=== PATIENT | male | born 1965 | race Caucasian/White ===

== ENCOUNTER 2021-05-12 09:19 | Inpatient (IN) | payer BC ==
[2021-05-16] MEDS ORDERED: Levofloxacin 500 mg/D5W 100 ml Premix Bag ONE (06:01)
[2021-05-16] MEDS ORDERED: EPINEPHrine 1 MG/ML AMP ONE (06:14)
[2021-05-16] MEDS ORDERED: Thrombin 5000 UNITS/5 ML VIAL ONE (06:14)
[2021-05-16] MEDS ORDERED: Bupivacaine PF 0.5% 30 ML VIAL ONE (06:14)
[2021-05-16] MEDS ORDERED: Neomycin-Polymyxin 1 ML AMP ONE (06:14)
[2021-05-16] MEDS ORDERED: Promethazine HCl 25 MG/ML VIAL IM PRN ×2 (06:33→15:20)
[2021-05-16] MEDS ORDERED: Ondansetron PF 4 MG/2 ML Vial IVP PRN (06:33)
[2021-05-16] MEDS ORDERED: Bisacodyl 10 MG SUPP PR PRN (06:33)
[2021-05-16] MEDS ORDERED: Milk Of Magnesia 30 ML UDCUP PO PRN (06:33)
[2021-05-16] MEDS ORDERED: Mag-Al 1200 mg/1200 mg/30 ML UDCUP PO PRN (06:33)
[2021-05-16] MEDS ORDERED: Acetaminophen 325 MG TAB PO PRN (06:33)
[2021-05-16] MEDS ORDERED: diphenhydrAMINE 25 MG CAP PO PRN (06:33)
[2021-05-16] MEDS ORDERED: Fentanyl 250 MCG/5 ML VIAL ONE ×2 (06:35→15:25)
[2021-05-16] MEDS ORDERED: Morphine 4 MG/ML VIAL SLOW IVP PRN (06:41)
[2021-05-16] MEDS ORDERED: Midazolam HCl 2 mg/2 ml Vial ONE (06:52)
[2021-05-16] MEDS ORDERED: Rocuronium Bromide 10 MG/ML (10ML VIAL) ONE (07:03)
[2021-05-16] MEDS ORDERED: Vecuronium 10 MG VIAL ONE (07:03)
[2021-05-16] MEDS ORDERED: PROPOFOL 200 MG/20 ML VIAL ONE (07:03)
[2021-05-16] MEDS ORDERED: Lidocaine 1% PF 5 ML VIAL ONE (07:03)
[2021-05-16] MEDS ORDERED: Glycopyrrolate 0.2 MG/ML 5 ML SYRINGE ONE (07:03)
[2021-05-16] MEDS ORDERED: PHENYLEPHRINE-NS 100 MCG/ML 10 ML SYRINGE ONE ×2 (07:03→09:38)
[2021-05-16] MEDS ORDERED: ePHEDrine 50 MG/ML VIAL ONE (07:03)
[2021-05-16] MEDS ORDERED: Labetalol HCl 100 MG/20 ML VIAL ONE (07:03)
[2021-05-16] MEDS ORDERED: Clindamycin/D5W 900 mg/50 ml Premix Bag ONE ×2 (07:06→12:14)
[2021-05-16] MEDS ORDERED: Albumin 5% 500 ML ONE (09:40)
[2021-05-16] MEDS ORDERED: HYDROmorphone 0.5 MG/0.5 ML SYRINGE ONE (14:00)
[2021-05-16] MEDS ORDERED: HYDROmorphone 2 MG/ML VIAL SLOW IVP PRN (15:20)
[2021-05-16] MEDS ORDERED: Promethazine HCl 25 MG/ML VIAL IVPB PRN (15:20)
[2021-05-16] MEDS ORDERED: Ondansetron HCl/PF 4 MG/2 ML Vial IVP PRN (15:20)
[2021-05-16] MEDS ORDERED: Tamsulosin HCl 0.4 MG CAP ONE (16:27)
[2021-05-16] MEDS: Clindamycin/D5W 900 MG in Premix Bag 1 BAG IVPB SCH ×2 (17:09→21:56)
[2021-05-16] MEDS: Sodium Chloride 0.9% 1,000 ML IV SCH (17:09)
[2021-05-16 18:42] VITALS: BMI 31.4
[2021-05-16] MEDS ORDERED: Dextrose 5% in Water 1,000 ML IV PRN (18:49)
[2021-05-16] MEDS ORDERED: Dextrose 50% Abboject 50 ML SYRINGE SLOW IVP PRN (18:49)
[2021-05-16] MEDS ORDERED: Nicotine 7 MG PATCH TD PRN (18:52)
[2021-05-16] MEDS: rOPINIRole HCl 2 MG TAB PO SCH (20:42)
[2021-05-16] MEDS: Pregabalin 75 MG CAP PO SCH (20:43)
[2021-05-16] MEDS ORDERED: Non-Formulary Item 1 EACH (Pregabalin [Pregabalin] 300 MG Capsule) PO SCH (21:00)
[2021-05-16] MEDS: HYDROcodone/Acetaminophen 7.5/325 mg Tablet PO PRN (21:12)
[2021-05-16] MEDS: Cyclobenzaprine 10 MG TAB PO PRN (21:21)
[2021-05-17] MEDS: Sodium Chloride 0.9% 1,000 ML IV SCH ×3 (00:39→23:57)
[2021-05-17] MEDS: HYDROcodone/Acetaminophen 7.5/325 mg Tablet PO PRN ×3 (01:43→11:57)
[2021-05-17] MEDS: Tamsulosin HCl 0.4 MG CAP PO SCH (05:47)
[2021-05-17] MEDS ORDERED: Cyanocobalamin (Vitamin B-12) 1,000 MCG TAB PO SCH (09:00)
[2021-05-17] MEDS: Pregabalin 75 MG CAP PO SCH ×2 (09:18→21:21)
[2021-05-17] MEDS: Multivit, Therapeutic 1 TAB PO SCH (09:18)
[2021-05-17] MEDS: Cyclobenzaprine 10 MG TAB PO PRN (09:18)
[2021-05-17] MEDS: DULoxetine 60 MG CAP PO SCH (09:18)
[2021-05-17] MEDS: Acetaminophen/Codeine 30-300mg Tablet PO PRN (09:19)
[2021-05-17] MEDS: Cyanocobalamin (Vitamin B-12) 1,000 MCG TAB PO SCH (11:50)
[2021-05-17] MEDS: HYDROcodone/Acetaminophen 10/325 mg Tablet PO PRN ×2 (17:21→21:21)
[2021-05-17] MEDS: rOPINIRole HCl 2 MG TAB PO SCH (21:21)
[2021-05-18] MEDS: HYDROcodone/Acetaminophen 10/325 mg Tablet PO PRN ×2 (01:57→06:03)
[2021-05-18] MEDS: Tamsulosin HCl 0.4 MG CAP PO SCH (06:03)
[2021-05-18 06:19] VITALS: BP 129/72; TEMP 99.1
[2021-05-18] MEDS: Acetaminophen/Codeine 30-300mg Tablet PO PRN (08:41)
[2021-05-18] MEDS: Multivit, Therapeutic 1 TAB PO SCH (08:41)
[2021-05-18] MEDS: DULoxetine 60 MG CAP PO SCH (08:41)
[2021-05-18] MEDS: Pregabalin 75 MG CAP PO SCH (08:42)
[2021-05-18] MEDS: Cyanocobalamin (Vitamin B-12) 1,000 MCG TAB PO SCH (08:42)
== END 2021-05-18 10:55 | disposition home or self-care (01) | DRG 455 ==
LOC: SURG A 05-16 05:39
PROVIDERS: ADMIT Neurological Surgery; ATTEND Neurological Surgery
PROC: 0SG30AJ Fusion of Lumbosacral Joint with Interbody Fusion Device, Posterior Approach, Anterior Column, Open Approach (ICD-10-PCS; principal; 2021-05-16)
PROC: 0SG3071 Fusion of Lumbosacral Joint with Autologous Tissue Substitute, Posterior Approach, Posterior Column, Open Approach (ICD-10-PCS; 2021-05-16)
PROC: 01NB0ZZ Release Lumbar Nerve, Open Approach (ICD-10-PCS; 2021-05-16)
PROC: 01NR0ZZ Release Sacral Nerve, Open Approach (ICD-10-PCS; 2021-05-16)
DX: M43.17 Spondylolisthesis, lumbosacral region (principal); M19.90 Unspecified osteoarthritis, unspecified site; G89.29 Other chronic pain; M54.17 Radiculopathy, lumbosacral region; F32.A Depression, unspecified; G43.909 Migraine, unspecified, not intractable, without status migrainosus; E11.42 Type 2 diabetes mellitus with diabetic polyneuropathy; G47.33 Obstructive sleep apnea (adult) (pediatric); F17.200 Nicotine dependence, unspecified, uncomplicated; R33.9 Retention of urine, unspecified; Z88.8 Allergy status to other drugs, medicaments and biological substances; Z88.1 Allergy status to other antibiotic agents; Z79.899 Other long term (current) drug therapy; Z83.3 Family history of diabetes mellitus
CPT/HCPCS: 76000; C1713; C1768; C1776; J0171; J1170; J1956; J2250; J2270; J2704; J3010; J3370; J3490; P9045; S0020

== ENCOUNTER 2021-05-12 10:48 | Outpatient (CLI) | payer BC ==
[2021-05-12 13:06] LABS: Hemoglobin 14.4 g/dL (13.5-17.5); Mean Corpuscular HGB CONC 32.4 g/dL (32.0-36.0); Mean Corpuscular Hemoglobin 30.7 pg (27.0-33.0); Mean Corpuscular Volume 94.7 fl (81.2-95.1); Mean Platelet Volume 9.2 fl (7.4-10.4); Platelet Count 214 10x3/uL (150-450); RBC Distribution Width 13.1 % (11.5-14.5); Red Blood Cell (RBC) Count 4.69 10x6/uL (4.32-5.72); White Blood Cell (WBC) Count 5.5 10x3/uL (3.5-10.5)
[2021-05-12 13:34] LABS: Anion Gap 14 mmol/L (10-20); BUN (Urea Nitrogen) 15 mg/dL (8.4-25.7); Calc. Creatinine Clearance 0 mL/min (70-130); Calcium 8.9 mg/dL (7.8-10.44); Carbon Dioxide 25 mmol/L (22-29); Chloride 108 mmol/L (98-107); Glucose 116 mg/dL (70-105); Potassium 4.4 mmol/L (3.5-5.1); Sodium 143 mmol/L (136-145)
[2021-05-12 13:37] LABS: PTT 26.5 sec (22.0-33.0)
[2021-05-12 23:37] LABS: SARS-CoV-2 PCR by NAA Not Detected (NotDetected)
== END 2021-05-12 10:49 | disposition home or self-care (01) ==
LOC: LABBT 10:48
PROVIDERS: ATTEND Neurological Surgery
DX: Z01.818 Encounter for other preprocedural examination (principal); M43.17 Spondylolisthesis, lumbosacral region; Z20.822 Contact with and (suspected) exposure to COVID-19
CPT/HCPCS: 80048; 85027; 85610; 85730; 93005; 93010; U0003; U0005